=== PATIENT | male | born 1940 | race Two or more races ===

== ENCOUNTER → 2016-11-30 | Outpatient (CLI) | payer MEDICARE, OTHER | END | disposition home or self-care (01) | LOC: PCVCCLINIC 13:04 | PROVIDERS: ATTEND Internal Medicine Cardiovascular Disease | DX: I25.10 Atherosclerotic heart disease of native coronary artery without angina pectoris (principal); E78.00 Pure hypercholesterolemia, unspecified; I10 Essential (primary) hypertension; R07.89 Other chest pain | CPT/HCPCS: 93005; G0463 ==

== ENCOUNTER → 2017-03-02 | Outpatient (CLI) | payer MEDICARE, OTHER ==
[~2017-03-02] MED LIST: DIAZEPAM 10 MG TABLET. ONE; IOHEXOL 350 MG/ML 100 ML VIAL. ONE; IOHEXOL 350 MG/ML 50 ML VIAL. ONE; IV NORMAL SALINE 1000ML BAG 1,000 ML ONE; LIDOCAINE 1% Multi-Dose 20 ML VIAL. ONE; MIDAZOLAM HCL/PF 2 MG/2 ML VIAL. ONE; fentaNYL PF VIAL 100 MCG/2 ML VIAL ONE
--- NOTE | 2017-03-04 17:53 | PCVCIMAG ---
EXAM: ABDOMINAL ULTRASOUND COMPLETE INDICATION: Abdominal pain FINDINGS: Gallbladder: No gallstones. No wall thickening or abnormal pericholecystic fluid. Liver: Normal in size measuring 15.0 cm in length. No focal masses. Bile ducts: No intra or extra hepatic bile duct dilatation. The common bile duct measures 4.5 mm. Pancreas: Incompletely seen due to overlying bowel gas. Spleen: Normal in size measuring 13.0 cm in greatest dimension. No focal masses. Right kidney: No hydronephrosis. Length measures 13.2 cm. Left kidney: No hydronephrosis. Length measures 13.2 cm. Inferior vena cava: Normal in size where seen. Aorta: Normal in caliber where seen. IMPRESSION: Unremarkable abdominal ultrasound. LOC:[id number]
== END | disposition home or self-care (01) ==
LOC: PCVCINTER 08:21
PROVIDERS: ATTEND Internal Medicine Cardiovascular Disease
DX: I25.10 Atherosclerotic heart disease of native coronary artery without angina pectoris (principal); Z88.2 Allergy status to sulfonamides
CPT/HCPCS: 75625; 76700; 93458; 99152; 99153; C1751; C1760; C1769; C1894; J2250; J3010; J7030; Q9967

== ENCOUNTER → 2017-05-19 | Outpatient (CLI) | payer MEDICARE, OTHER ==
--- NOTE | 2017-05-19 12:55 | PCVCIMAG ---
EXAM: BILATERAL CAROTID DUPLEX INDICATION: Carotid Occlusive Disease. FINDINGS: Doppler Measurements (centimeters per second): RIGHT: Peak CCA-95, Peak ECA-94, Diastolic ICA-12, Peak ICA-66, ICA/CCA Ratio-0.7. LEFT: Peak CCA-58, Peak ECA-87, Diastolic ICA-15, Peak ICA-74, ICA/CCA Ratio-1.3. RIGHT CAROTID: The carotid bulb has minimal plaque. The proximal internal carotid artery shows no significant stenosis. The common carotid artery shows no significant stenosis. The external carotid artery shows no significant stenosis. LEFT CAROTID: The carotid bulb has minimal plaque. The proximal internal carotid artery shows no significant stenosis. The common carotid artery shows no significant stenosis. The external carotid artery shows no significant stenosis. Antegrade flow in both vertebral arteries. IMPRESSION: No significant stenosis of the right internal carotid artery with minimal plaque. No significant stenosis of the left internal carotid artery with minimal plaque. LOC:[id number]
== END | disposition home or self-care (01) ==
LOC: PCVCIMAG 11:20
PROVIDERS: ATTEND Internal Medicine Cardiovascular Disease
DX: I65.23 Occlusion and stenosis of bilateral carotid arteries (principal)
CPT/HCPCS: 93880

== ENCOUNTER → 2017-06-23 | Outpatient (CLI) | payer MEDICARE, OTHER | END | disposition home or self-care (01) | LOC: PCVCCLINIC 15:13 | PROVIDERS: ATTEND Internal Medicine Cardiovascular Disease | DX: I25.10 Atherosclerotic heart disease of native coronary artery without angina pectoris (principal); I10 Essential (primary) hypertension; E78.5 Hyperlipidemia, unspecified; I65.23 Occlusion and stenosis of bilateral carotid arteries; K21.9 Gastro-esophageal reflux disease without esophagitis; E11.9 Type 2 diabetes mellitus without complications; R94.31 Abnormal electrocardiogram [ECG] [EKG]; Z87.891 Personal history of nicotine dependence; Z79.82 Long term (current) use of aspirin; Z79.84 Long term (current) use of oral hypoglycemic drugs; Z79.899 Other long term (current) drug therapy | CPT/HCPCS: 80061; 93005; G0463 ==

== ENCOUNTER → 2017-10-04 | Outpatient (CLI) | payer MEDICARE, OTHER | END | disposition home or self-care (01) | LOC: PCVCCLINIC 14:32 | DX: I25.10 Atherosclerotic heart disease of native coronary artery without angina pectoris (principal); I10 Essential (primary) hypertension; E78.00 Pure hypercholesterolemia, unspecified; I65.23 Occlusion and stenosis of bilateral carotid arteries; E11.9 Type 2 diabetes mellitus without complications; K21.9 Gastro-esophageal reflux disease without esophagitis; Z87.891 Personal history of nicotine dependence; Z79.82 Long term (current) use of aspirin; Z79.899 Other long term (current) drug therapy | CPT/HCPCS: 93005; G0463 ==

== ENCOUNTER → 2018-04-26 | Outpatient (CLI) | payer MEDICARE, OTHER | END | disposition home or self-care (01) | LOC: PCVCCLINIC 15:18 | DX: I25.10 Atherosclerotic heart disease of native coronary artery without angina pectoris (principal); I10 Essential (primary) hypertension; E78.00 Pure hypercholesterolemia, unspecified; K21.9 Gastro-esophageal reflux disease without esophagitis; Z79.82 Long term (current) use of aspirin; Z87.891 Personal history of nicotine dependence | CPT/HCPCS: 80061; 93005; G0463 ==

== ENCOUNTER → 2018-11-02 | Outpatient (CLI) | payer MEDICARE, OTHER | END | disposition home or self-care (01) | LOC: PCVCCLINIC 14:53 | PROVIDERS: ATTEND Internal Medicine Cardiovascular Disease | DX: I25.10 Atherosclerotic heart disease of native coronary artery without angina pectoris (principal); I10 Essential (primary) hypertension; E78.00 Pure hypercholesterolemia, unspecified; K21.9 Gastro-esophageal reflux disease without esophagitis; Z87.891 Personal history of nicotine dependence | CPT/HCPCS: 36415; 80061; 93005; G0463 ==

== ENCOUNTER → 2018-12-12 | Outpatient (CLI) | payer MEDICARE, OTHER ==
[~2018-12-12] MED LIST changes: -DIAZEPAM 10 MG TABLET. ONE; -IOHEXOL 350 MG/ML 100 ML VIAL. ONE; -IOHEXOL 350 MG/ML 50 ML VIAL. ONE; -IV NORMAL SALINE 1000ML BAG 1,000 ML ONE; -LIDOCAINE 1% Multi-Dose 20 ML VIAL. ONE; -MIDAZOLAM HCL/PF 2 MG/2 ML VIAL. ONE; +REGADENOSON 0.4 MG/5 ML DISP.SYRIN. IV ONE; -fentaNYL PF VIAL 100 MCG/2 ML VIAL ONE
--- NOTE | 2018-12-12 12:50 | PCVCIMAG ---
APPROVED REPORT Imaging Protocol: Rest Tc-99m/Stress Tc-99m 1 day Study performed: 12/12/2018 08:56:29 Indication: Chest pain, CAD Patient Location: Out-Patient Stress Nurse: Loren Milner RN, Michelle Potter RN NM Tech:Mo ConwayZAHIRA Ht: 5 ft 7 in Wt: 190 lbs BSA: 1.98 m2 HR: 67 bpm BP: 134/62 mmHg BMI: 29.7 Rhythm: Normal Sinus Rhythm Medical History Medical History: Age, Hyperlipidemia, HTN, CAD, Former Smoker Medications: Atorvastatin, Edarbiclor, Bystolic, ASA, Protonix Allergies: Losartan, Sulfa Previous Cardiac Procedures: PCI Pretest Chest Pain Characteristics: No chest pain Exercise History: Sedentary Meds Held (24 hrs): Bystolic Resting Data Rest SPECT myocardial perfusion imaging was performed in supine position 45 minutes following the intravenous injection of 10.8 mCi of Tc-99m Sestamibi. Time of rest injection: 0845 Date: 12/12/2018 Administration Route: IV Administration Site: Right AC Pharmacologic Stress Pharmacologic stress test was performed by injecting Regadenoson 0.4 mg IV push over 10-15 seconds immediately followed by the intravenous injection of 32.9 mCi of Tc-99m Sestamibi. Time of stress injection: 1000 Date: 12/12/2018 Administration Route: IV Administration Site: Right AC Gated Stress SPECT was performed 45 minutes after stress injection. The images were gated to evaluate regional wall motion and calculate left ventricular ejection fraction. Stress Test Details Stress Test: Pharmacologic stress testing performed using 0.4 mg of regadenoson per 5 mL given IV over 10 seconds. Reason for pharmacologic stress test: Back Issues. HRMax Heart Rate (APMHR): 140 bpm Resting HR: 67 bpmTarget HR (85% APMHR): 119 bpm Max HR Achieved: 93 bpm % of APMHR: 66 Recovery HR: 92 bpm BP Resting BP: 134/62 mmHg Max BP: 113/59 mmHg Recovery BP: 119/58 mmHg ECG Resting ECG: Sinus Rhythm Stress ECG: Sinus Rhythm Arrhythmia: None Recovery ECG: Sinus Rhythm Clinical Reason for Termination: Completed protocol Stress Symptoms: Lightheaded, Dizzy Exercise duration: min 55 sec Symptoms resolved with caffeine. Stress ECG Conclusion ECG: Non-ischemic Study Quality Study: Good Study Data Post stress, the left ventricular ejection was 73%.. SSS: 1 SRS: 1 SDS: 0 TID = 0.97. Perfusion No evidence of stress induced ischemia or prior myocardial infarction. Wall Motion Normal left ventricular size and function with no regional wall motion abnormalities. Nuclear Conclusion No evidence of stress induced ischemia or prior myocardial infarction. Normal left ventricular size and function with no regional wall motion abnormalities. Post stress, the left ventricular ejection was 73%. No change since prior study dated July 2016. Interpreted by: Jona Mercado MD Electronically Approved: 12/12/2018 12:14:22 <Conclusion> ECG: Non-ischemic
== END | disposition home or self-care (01) ==
LOC: PCVCIMAG 08:24
PROVIDERS: ATTEND Internal Medicine Cardiovascular Disease
DX: I25.10 Atherosclerotic heart disease of native coronary artery without angina pectoris (principal); E78.5 Hyperlipidemia, unspecified; R07.9 Chest pain, unspecified
CPT/HCPCS: 78452; 93017; A9500; J2785